=== PATIENT | female | born 1955 | race Caucasian/White ===

== ENCOUNTER 2019-12-16 12:44 | Outpatient (CLI) | payer MEDICARE, OTHER ==
[2019-12-16] MEDS ORDERED: TRIA1TAB5 PO (13:15)
[2019-12-16] MEDS ORDERED: SIMV20TA19 PO (13:15)
[2019-12-16] MEDS ORDERED: ALBU8.5H8 INH (13:15)
== END 2019-12-16 23:59 | disposition home or self-care (01) ==
LOC: RAD 12:44
PROVIDERS: ATTEND Internal Medicine
DX: R91.1 Solitary pulmonary nodule (principal); R59.0 Localized enlarged lymph nodes; M51.34 Other intervertebral disc degeneration, thoracic region; R16.1 Splenomegaly, not elsewhere classified
CPT/HCPCS: 71250; 94060; 94726; 94729

== ENCOUNTER 2019-12-19 10:59 | Day surgery (SDC) | payer MEDICARE, OTHER ==
[2019-12-16 13:50] LABS: ANION GAP 6 mmol/L (5-15); CALCIUM 9.5 mg/dL (8.5-10.1); CHLORIDE 105 mmol/L (98-107)
[2019-12-16 13:54] LABS: ALANINE AMINOTRANSFERASE 23 U/L (12-78); ALKALINE PHOSPHATASE 73 U/L (45-117); BILIRUBIN,TOTAL 0.9 mg/dL (0.2-1.0); CREATININE 0.76 mg/dL (0.55-1.02); TOTAL PROTEIN 7.6 g/dL (6.4-8.2)
[~2019-12-19] VITALS: Ht 162.6 cm; Wt 104.0 kg
[~2019-12-19 10:59] MED LIST: ALBU8.5H8 INH; SIMV20TA19 PO; TRIA1TAB5 PO
[2019-12-19] MEDS ORDERED: LACTATED RINGERS 1,000 ML IV SCH (11:09)
[2019-12-19] MEDS ORDERED: MIDAZOLAM 1 MG/ML, 2ML ONE (12:38)
[2019-12-19] MEDS ORDERED: FENTANYL PF 100 MCG/2ML ONE (12:38)
[2019-12-19] MEDS ORDERED: PROMETHAZINE 25 MG/ML, 1ML IV PRN (13:00)
[2019-12-19] MEDS ORDERED: FENTANYL PF 100 MCG/2ML IV PRN (13:00)
[2019-12-19] MEDS ORDERED: ALBUTEROL SULFATE 2.5 MG/3 ML NPPB PRN (13:00)
[2019-12-19] MEDS ORDERED: MORPHINE SULFATE 4 MG/ML, 1ML IVPush PRN (13:00)
[2019-12-19] MEDS ORDERED: DEXAMETHASONE 4 MG/ML, 1ML ONE (14:01)
[2019-12-19] MEDS ORDERED: NEOSTIGMINE 1 MG/ML, 10ML ONE (14:01)
[2019-12-19] MEDS ORDERED: GLYCOPYRROLATE 0.2MG/1ML, 5ML ONE (14:01)
[2019-12-19] MEDS ORDERED: PROPOFOL 10 MG/ML, 20ML ONE (14:01)
[2019-12-19] MEDS ORDERED: ONDANSETRON 2MG/ML, 2ML ONE (14:01)
[2019-12-19] MEDS ORDERED: CEFAZOLIN 1,000 MG ONE (14:01)
[2019-12-19] MEDS ORDERED: SUCCINYLCHOLINE 20 MG/ML, 10ML ONE (14:01)
[2019-12-19] MEDS ORDERED: ROCURONIUM 10MG/ML,5ML ONE (14:01)
[2019-12-19] MEDS ORDERED: ALBUTEROL SULFATE 2.5 MG/3 ML ONE (14:57)
== END 2019-12-19 16:35 | disposition home or self-care (01) ==
LOC: OUT 10:59
PROVIDERS: ATTEND Internal Medicine
DX: R91.8 Other nonspecific abnormal finding of lung field (principal); R59.0 Localized enlarged lymph nodes; C82.12 Follicular lymphoma grade II, intrathoracic lymph nodes; I10 Essential (primary) hypertension; G47.33 Obstructive sleep apnea (adult) (pediatric); J45.909 Unspecified asthma, uncomplicated; E66.9 Obesity, unspecified; Z68.39 Body mass index [BMI] 39.0-39.9, adult; Z79.899 Other long term (current) drug therapy; Z88.1 Allergy status to other antibiotic agents; Z80.0 Family history of malignant neoplasm of digestive organs
CPT/HCPCS: 31652; 36415; 80053; 88172; 88173; 88177; 88305; 88341; 88342; 93005; J0330; J0690; J1100; J2250; J2405; J2704; J3010; J7120; J7613; 31629; J2710

== ENCOUNTER → 2019-12-30 | Outpatient (CLI) | payer MEDICARE, OTHER | END | disposition home or self-care (01) | LOC: PETCFH 11:13 | PROVIDERS: ATTEND Internal Medicine Hematology & Oncology | DX: C82.31 Follicular lymphoma grade IIIa, lymph nodes of head, face, and neck (principal); R59.1 Generalized enlarged lymph nodes; N85.2 Hypertrophy of uterus; D25.9 Leiomyoma of uterus, unspecified | CPT/HCPCS: 78815; A9552 ==

== ENCOUNTER 2020-01-09 09:09 | Day surgery (SDC) | payer MEDICARE, OTHER ==
[~2020-01-09] VITALS: Ht 162.6 cm; Wt 104.5 kg
[2020-01-09] MEDS ORDERED: PLEASE ENTER HEIGHT AND WEIGHT MC SCH (10:00)
[2020-01-09 10:28] VITALS: BP 157/91
[2020-01-09] MEDS ORDERED: CEFAZOLIN PMX 1GM/50ML 50 ML IVPB ONE (10:30)
[2020-01-09] MEDS ORDERED: SODIUM CHLORIDE 0.9% 1,000 ML IV SCH (10:30)
== END 2020-01-09 13:30 | disposition home or self-care (01) ==
LOC: RAD 09:09 → 4NE 10:07 → RAD 13:30
PROVIDERS: ATTEND Internal Medicine Hematology & Oncology
DX: C82.31 Follicular lymphoma grade IIIa, lymph nodes of head, face, and neck (principal); G47.33 Obstructive sleep apnea (adult) (pediatric); I10 Essential (primary) hypertension; E78.00 Pure hypercholesterolemia, unspecified; J45.909 Unspecified asthma, uncomplicated; Z88.1 Allergy status to other antibiotic agents
CPT/HCPCS: 36561; 76937; 77001; 99156; 99157; C1788; G0378

== ENCOUNTER → 2020-04-07 | Outpatient (CLI) | payer MEDICARE, OTHER | END | disposition home or self-care (01) | LOC: PETCFH 09:35 | PROVIDERS: ATTEND Internal Medicine Hematology & Oncology | DX: C82.31 Follicular lymphoma grade IIIa, lymph nodes of head, face, and neck (principal) | CPT/HCPCS: 78815; A9552 ==

== ENCOUNTER 2020-08-25 07:52 | Day surgery (SDC) | payer MEDICARE, OTHER ==
[~2020-08-25] VITALS: Ht 162.6 cm; Wt 108.8 kg
[2020-08-25 08:29] VITALS: BP 138/83
[2020-08-25] MEDS ORDERED: SODIUM CHLORIDE 0.9% 1,000 ML IV SCH (08:30)
[2020-08-25] MEDS ORDERED: LIDOCAINE 1%, 20ML ONE (09:31)
[2020-08-25] MEDS ORDERED: MIDAZOLAM 1 MG/ML, 5ML ONE (09:46)
[2020-08-25] MEDS ORDERED: FLUMAZENIL 0.1 MG/1 ML, 5ML ONE (09:46)
[2020-08-25] MEDS ORDERED: FENTANYL PF 100 MCG/2ML ONE (09:46)
[2020-08-25] MEDS ORDERED: NALOXONE 1 MG/ML, 2ML ONE (09:46)
== END 2020-08-25 11:20 | disposition home or self-care (01) ==
LOC: OUT 07:52
PROVIDERS: ATTEND Internal Medicine Hematology & Oncology
DX: Z45.2 Encounter for adjustment and management of vascular access device (principal); C82.31 Follicular lymphoma grade IIIa, lymph nodes of head, face, and neck; I10 Essential (primary) hypertension; G47.30 Sleep apnea, unspecified; E66.9 Obesity, unspecified; R16.1 Splenomegaly, not elsewhere classified; Z85.828 Personal history of other malignant neoplasm of skin
CPT/HCPCS: 36590; 77001; 99156; 99157; J2250; J3010; 36582; J2310